=== PATIENT | male | born 1990 | race Caucasian/White ===

== ENCOUNTER → 2018-04-17 | Outpatient (REF) | payer BC ==
[~2018-04-17] MED LIST: AUGM875T28 PO; CELE100C PO; DOCU10CA PO; MILK120011 PO; NEUR600T PO; OXYC15TA76 PO; no home meds
== END ==
LOC: M LAB REF 19:21
PROVIDERS: ATTEND Physician Assistant Medical
DX: J02.9 Acute pharyngitis, unspecified (principal)

== ENCOUNTER 2018-06-27 16:51 | Emergency (ER) | payer BC, OTHER ==
[~2018-06-27] VITALS: Ht 182.9 cm; Wt 100.0 kg
[2018-06-27] MEDS ORDERED: ADACEL/BOOSTRIX VACCINE (DIPHTH/PERTUSS/ACELL/TETANUS)0.5ML SYR (90715) IM ONE (17:30)
[2018-06-27] MEDS ORDERED: LIDOCAINE 2% MDV 20 ML VIAL SC ONE (17:30)
[2018-06-27] MEDS ORDERED: NORCO, ANEXSIA 5/325MG TABLET (HYDROcodone/ACETAMINOPHEN) PO ONE (18:15)
[2018-06-27] MEDS ORDERED: KEFL500C17 PO (18:51)
[2018-06-27 19:00] VITALS: BP 144/73
[2018-06-27] MEDS ORDERED: CEPHALEXIN 500 MG CAP PO ONE (19:00)
--- NOTE | 2018-06-27 19:00 | REP ---
Left hand series: Four views: History: Injury with a chop saw. Findings: There is soft-tissue swelling and irregularity dorsally over the distal ends of the fourth and fifth metacarpals. No opaque foreign body is seen. No fracture is noted. No intra-articular gas is seen. Impression: Soft-tissue injury. No fracture or opaque foreign body noted. Electronically Signed by Janak Acevedo MD 06/27/2018 07:10 P
== END 2018-06-27 19:00 | disposition home or self-care (01) ==
LOC: M ED 16:51
DX: S61.412A Laceration without foreign body of left hand, initial encounter (principal); W26.8XXA Contact with other sharp object(s), not elsewhere classified, initial encounter; X58.XXXA Exposure to other specified factors, initial encounter; Y92.099 Unspecified place in other non-institutional residence as the place of occurrence of the external cause; Y93.9 Activity, unspecified; Y99.9 Unspecified external cause status

== ENCOUNTER → 2018-07-05 | Outpatient (REF) | payer OTHER ==
[~2018-07-05] MED LIST changes: +KEFL500C17 PO
== END ==
LOC: M SMT 13:41
PROVIDERS: ATTEND Urology
DX: Z30.2 Encounter for sterilization (principal)

== ENCOUNTER → 2018-08-31 | Outpatient (REF) | payer OTHER ==
[2018-08-31 10:06] LABS: SEMEN APPEARANCE OPAQUE (OPAQUE)
[2018-08-31 10:07] LABS: SEMEN VISCOSITY LIQUID (LIQUID); WBC CONCENTRATION <=1 M/ml (<=1 M/ml)
== END ==
LOC: M SMT 09:52
PROVIDERS: ATTEND Urology
DX: Z30.2 Encounter for sterilization (principal)

== ENCOUNTER 2022-03-15 09:58 | Emergency (ER) | payer BC, OTHER ==
[~2022-03-15] VITALS: Ht 182.9 cm; Wt 106.0 kg
[~2022-03-15 09:58] MED LIST changes: +OXYC-1 PO; -OXYC15TA76 PO
[2022-03-15] MEDS ORDERED: FAMOTIDINE 20MG/2ML VIAL IVP ONE (10:40)
[2022-03-15 12:08] LABS: BASO % 0.5 % (0.0-1.0); EOS # 0.1 10^3/uL (0.0-0.5); EOS % 0.9 % (0.0-3.0); HEMATOCRIT 49.1 % (42.0-52.0); HEMOGLOBIN 16.3 g/dl (13.5-17.5); LYMPH # 0.8 10^3/uL (1.5-5.0); LYMPH % 13.7 % (24.0-44.0); MEAN CORPUSCULAR HEMOGLOBIN 28.1 pg (27.0-33.0); MEAN CORPUSCULAR HGB CONC 33.2 g/dl (32.0-36.5); MEAN CORPUSCULAR VOLUME 84.7 fl (80.0-96.0); MONO # 0.6 10^3/uL (0.0-0.8); MONO % 9.4 % (2.0-8.0); NEUTROPHILS # 4.4 10^3/uL (1.5-8.5); NEUTROPHILS % 75.3 % (36.0-66.0); PLATELET COUNT, AUTOMATED 191 10^3/uL (150-450); WHITE BLOOD COUNT 5.9 10^3/uL (4.0-10.0)
[2022-03-15 12:25] LABS: INR 0.98; PROTHROMBIN TIME 13.2 SECONDS (12.5-14.5)
[2022-03-15 12:28] LABS: LIPASE 34 U/L (12-53)
[2022-03-15 12:29] LABS: AMYLASE 74 U/L (30-118)
[2022-03-15 12:30] LABS: ALBUMIN 3.7 G/DL (3.2-5.2); ALKALINE PHOSPHATASE 58 U/L (46-116); ALT/SGPT 24 U/L (7.0-40); AST/SGOT 27 U/L (<34); BILIRUBIN,DIRECT 0.2 MG/DL (<0.4); BILIRUBIN,TOTAL 0.6 MG/DL (0.3-1.2); BLOOD UREA NITROGEN 19 MG/DL (9-23); CALCIUM LEVEL 8.1 MG/DL (8.5-10.1); CARBON DIOXIDE LEVEL 27 MMOL/L (20-31); CHLORIDE LEVEL 101 MMOL/L (98-107); GLOMERULAR FILTRATION RATE > 60.0 (>60); GLUCOSE, FASTING 83 MG/DL (60-100); POTASSIUM SERUM 4.1 MMOL/L (3.5-5.1); SODIUM LEVEL 137 MMOL/L (136-145); TOTAL PROTEIN 6.8 G/DL (5.7-8.2)
[2022-03-15] MEDS ORDERED: DICY10CA13 PO (13:34)
[2022-03-15] MEDS ORDERED: IBUP-1022 PO (13:34)
[2022-03-15 13:44] VITALS: BP 129/67
== END 2022-03-15 13:44 | disposition home or self-care (01) ==
LOC: M ED 09:58
DX: K52.9 Noninfective gastroenteritis and colitis, unspecified (principal); Z90.89 Acquired absence of other organs; M43.06 Spondylolysis, lumbar region
CPT/HCPCS: 74176; 80048; 80076; 81002; 82150; 83690; 85025; 85610; 96374; 99284; S0028